=== PATIENT | female | born 1995 | race American Indian/Alaskan Native ===

== ENCOUNTER 2019-01-20 08:21 | Emergency (ER) | payer BC ==
[2019-01-20 08:29] VITALS: BP 112/67
--- NOTE | 2019-01-20 09:04 | Emergency Department Report ---
Upper Extremity - HPI Chief Complaint: Extremity Injury, Upper Stated Complaint: L SHOULDER PAIN Time Seen by Provider: 01/20/19 08:45 Upper Extremity: Left Shoulder Occurred When: 1 Day Mechanism: Fall Severity: moderate Symptoms: Yes Pain with Movement, Yes Limited Range of Movement, No Deformity, No Numbness, No Weakness, No Swelling, No Bruising/Ecchymosis, No Laceration or Abrasion Other History: This is a 23-year-old female who presents to ED complaining of left shoulder pain that began yesterday and is worsened this morning. Patient states that she tripped down a couple steps yesterday in fell landing on her arm and side. Patient states she was at home when this happens that she fell on carpet. Patient states that she had some shoulder and upper arm pain yesterday but this morning in has gotten worse and stiff. Patient states pain is worsened with movement of the left upper arm and shoulder. She denies loss of consciousness, trauma to the head. Patient states last menstrual period is 01/19/2019. ED Review of Systems ROS: Stated complaint: L SHOULDER PAIN Other details as noted in HPI Comment: All other systems reviewed and negative ED Past Medical Hx - Past Medical History Previous Medical History?: No - Surgical History Past Surgical History?: Yes Additional Surgical History: ovarian cyst - Social History Smoking Status: Never Smoker Substance Use Type: None - Medications Home Medications: Home Medications Medication Instructions Recorded Confirmed Last Taken Type Cyclobenzaprine [Flexeril] 10 mg PO QHS PRN #8 tablet 01/20/19 Unknown Rx Ibuprofen [Motrin] 800 mg PO Q8HR #30 tablet 01/20/19 Unknown Rx Upper Extremity Exam - Exam General: Vital signs noted. No distress. Alert and acting appropriately. Head and Torso: No HEENT Abnormality, No Neck Tenderness, No Chest/Lungs Abnormality, No Abdominal Tenderness, No Back Tenderness Shoulder Exam: Yes Shoulder Tenderness, Yes Normal Range of Motion in Shoulder (limited with pain), No Clavicle Tenderness, No Shoulder Deformity, No AC Joint Tenderness Arm Exam: No Arm/Humerus Tenderness, No Arm Deformity Elbow: No Elbow Tenderness, No Normal Range of Motion in Elbow, No Elbow Deformity Forearm: No Forearm Tenderness, No Forearm Deformity, No Pain with Pronation, No Pain with Supination Wrist: Yes Normal ROM in Wrist, No Wrist Tenderness, No Wrist Deformity, No Snuffbox Tenderness, No Pain with Axial Thumb Compression Hand: Yes Normal ROM in Digit(s), No Hand Tenderness, No Hand Deformity, No Digit Tenderness, No Digit(s) Deformity, No Tendon Dysfunction CMS Exam: No Broken Skin, No Normal Distal Pulses, No Normal Capillary Refill, No Normal Distal Sensation ED Course Vital Signs 01/20/19 08:28 Temperature 97.5 F L Pulse Rate 68 Respiratory 16 Rate Blood Pressure 112/67 [Left] O2 Sat by Pulse 100 Oximetry ED Medical Decision Making - Radiology Data Radiology results: report reviewed, image reviewed - Medical Decision Making 23-year-old female presents to ED with shoulder pain status post ground-level fall yesterday ED course: Patient received Toradol and Flexeril in ED. X-rays of the shoulder is obtained. X-ray shows no acute fracture dislocation Vital signs are normal patient is in no acute distress Discussed with patient follow-up with primary care physician. Discussed the patient and take medications as prescribed. Patient has no neurological deficit. Patient is alert and oriented 3 and understands all instructions given. Discussed drowsiness effect of Flexeril makes her drowsy and not to operate machinery while taking flexeril Critical care attestation.: If time is entered above; I have spent that time in minutes in the direct care of this critically ill patient, excluding procedure time. ED Disposition Clinical Impression: Left shoulder pain, Fall from ground level Disposition: DC-01 TO HOME OR SELFCARE Is pt being admited?: No Does the pt Need Aspirin: No Condition: Stable Instructions: Rotator Cuff Injury (ED), Shoulder Sprain (ED), Trigger Point Pain (ED) Additional Instructions: Make sure to follow up with the orthopedic doctor as discussed. Shoulder x-ray shows no fracture or dislocation. You have shoulder pain/strain from fall. Apply heat to the shoulder and Take all your medications as you've been prescribed. If you have any worsening symptoms or develop new symptoms please return to ED immediately. Prescriptions: Cyclobenzaprine [Flexeril] 10 mg PO QHS PRN #8 tablet PRN Reason: Muscle Spasm Ibuprofen [Motrin] 800 mg PO Q8HR #30 tablet Referrals: LEANDRA CASH MD [Primary Care Provider] - 3-5 Days JEANE AQUINO MD [Staff Physician] - 3-5 Days Forms: Accompanied Note, Work/School Release Form(ED) Time of Disposition: 09:15
[2019-01-20] MEDS ORDERED: FLEXERIL PO ONE (09:07)
[2019-01-20] MEDS ORDERED: TORADOL IM ONE (09:07)
--- NOTE | 2019-01-20 09:09 | XRay Report ---
Left shoulder, 3 views INDICATION: Pain following fall yesterday FINDINGS: The joint space is maintained. There is no fracture or dislocation. No spurring or arthriti c change. No bone lesion or periostitis. No significant abnormality. IMPRESSION: Negative study Signer Name: Dayne Al MD Signed: 01/20/2019 9:05 AM Workstation Name: [id number]
== END 2019-01-20 10:05 | disposition home or self-care (01) ==
LOC: ED 08:21
DX: M25.512 Pain in left shoulder (principal); Z98.890 Other specified postprocedural states; Z79.899 Other long term (current) drug therapy; W01.0XXA Fall on same level from slipping, tripping and stumbling without subsequent striking against object, initial encounter; Y93.89 Activity, other specified; Y92.098 Other place in other non-institutional residence as the place of occurrence of the external cause; Y99.8 Other external cause status
CPT/HCPCS: 73030; 96372; 99283; J1885

== ENCOUNTER 2019-05-17 19:56 | Emergency (ER) | payer BC ==
--- NOTE | 2019-05-17 20:46 | Emergency Department Report ---
Blank Doc - Documentation Documentation: 23-year-old female that presents with vaginal discharge. This initial assessment/diagnostic orders/clinical plan/treatment(s) is/are subject to change based on patient's health status, clinical progression and re- assessment by fellow clinical providers in the ED. Further treatment and workup at subsequent clinical providers discretion. Patient/guardians urged not to elope from the ED as their condition may be serious if not clinically assessed and managed. Initial orders include: 1- Patient sent to [facility] for further evaluation and treatment 2- UA 3- pelvic exam to be done
[2019-05-17 21:16] LABS: Bacteria,Urine 1+ /HPF (Negative); Bilirubin,Urine NEG (Negative); Blood,Urine SM (Negative); Color,Urine Yellow (Yellow); Mucus,Urine FEW /HPF; Protein,Urine <15 mg/dL mg/dL (Negative); Urobilinogen,Urine < 2.0 mg/dL (<2.0)
[2019-05-17 21:17] LABS: HCG Qualitative,Urine Negative (Negative)
[2019-05-17] MEDS ORDERED: LIDOCAINE-MPF (1%) 10 MG/1 ML VIAL 5 ML INFILTRATI ONE (23:20)
[2019-05-17] MEDS ORDERED: AZITHROMYCIN 1 GM ORAL PWDR PACKET PO ONE (23:21)
--- NOTE | 2019-05-17 23:30 | Emergency Department Report ---
HPI - General Chief Complaint: Urogenital-Female Time Seen by Provider: 05/17/19 20:45 - HPI HPI: 23-year-old [place] female presents to the emergency department with a complaint of a 5 day history of vaginal discharge and a one-day history of some bumps or lesions to the vagina. Patient says that the vaginal discharge became heavy over the past 24 hours. She denies any history of STDs but does have a history of bacterial vaginosis. She is sexually active and does not always use protection. She says that the bumps are small raised fluid-filled lesions. She says that she did pop them earlier in the day but they came back. They are pain ful. She has not taken anything for her symptoms prior to presentation. ED Past Medical Hx - Past Medical History Previous Medical History?: No - Surgical History Past Surgical History?: Yes Additional Surgical History: ovarian cyst - Social History Smoking Status: Never Smoker Substance Use Type: None - Medications Home Medications: Home Medications Medication Instructions Recorded Confirmed Last Taken Type Cyclobenzaprine [Flexeril] 10 mg PO QHS PRN #8 tablet 01/20/19 Unknown Rx Ibuprofen [Motrin] 800 mg PO Q8HR #30 tablet 01/20/19 Unknown Rx metroNIDAZOLE [Flagyl] 500 mg PO Q12HR #14 tab 05/18/19 Unknown Rx ED Review of Systems ROS: Stated complaint: POSSIBLE STD Other details as noted in HPI Comment: All other systems reviewed and negative Constitutional: denies: chills, fever Gastrointestinal: denies: abdominal pain Genitourinary: discharge. denies: dysuria, abnormal menses Musculoskeletal: denies: back pain Skin: lesions (vagina) Physical Exam - Physical Exam Vital Signs: Vital Signs 05/17/19 20:06 Temperature 98.5 F Pulse Rate 78 Respiratory 18 Rate Blood Pressure 119/64 O2 Sat by Pulse 97 Oximetry Physical Exam: GENERAL: The patient is well-developed well-nourished. HENT: Normocephalic. Atraumatic. Patient has moist mucous membranes. EYES: Extraocular motions are intact. NECK: Supple. Trachea is midline. ABDOMEN: There is no abdominal distention. SKIN: Skin is warm and dry. There is a group of flesh-colored papules to the right labia. No bleeding, weeping, drainage. NEURO: The patient is awake, alert, and oriented. The patient is cooperative. The patient has no focal neurologic deficits. Normal speech. MUSCULOSKELETAL: There is no tenderness or deformity. There is no evidence of acute injury. : There is a moderate amount of white discharge seen in the vagina. Cervical os appears closed. No obvious cervical lesions. ED Course Vital Signs 05/17/19 20:06 Temperature 98.5 F Pulse Rate 78 Respiratory 18 Rate Blood Pressure 119/64 O2 Sat by Pulse 97 Oximetry - Reevaluation(s) Reevaluation #1: Pelvic examination done with nurse Ortiz at bedside 05/18/19 00:39 ED Medical Decision Making - Medical Decision Making Regarding the patient's vaginal discharge, the patient was positive for both bacterial vaginosis and trichomoniasis. She'll be placed on Flagyl. We discussed the adverse reaction that occurs with Flagyl and alcohol. She was treated empirically for gonorrhea and chlamydia with Rocephin and azithromycin. Patient denies any significant abdominal or pelvic pain. She is afebrile. Low suspicion for PID. The rash or lesions the patient complains of is a group of/color papules to the right side of the labia. They're not obvious for vesicles. There are no current ulcerations. I discussed with patient about empirically treating for the possibility of herpes simplex but the patient declined. She was given a referral for dermatology an [facility], as well as the local health department. She will return to the ER with any worsening of her symptoms or any acute dist ress. - Differential Diagnosis gonorrhea, chlamydia, BV, trichomoniasis, herpes Critical Care Time: No Critical care attestation.: If time is entered above; I have spent that time in minutes in the direct care of this critically ill patient, excluding procedure time. ED Disposition Clinical Impression: Bacterial vaginosis, Trichomoniasis Disposition: DC-01 TO HOME OR SELFCARE Is pt being admited?: No Condition: Stable Instructions: Bacterial Vaginosis (ED), Trichomoniasis (ED) Additional Instructions: Please take the antibiotics as prescribed. The medication you were prescribed, Flagyl/metronidazole, has a very severe reaction of mixed with alcohol of any quantity. Please do not consume any alcohol for up to 2 days after finishing this medication. Please follow-up with [facility] or dermatology regarding your vaginal rash. Return to the emergency Department with any worsening of your symptoms or any acute distress. Prescriptions: metroNIDAZOLE [Flagyl] 500 mg PO Q12HR #14 tab Referrals: TOMASA ANDRADE MD [Staff Physician] - 2-3 Days [facility] [Provider Group] - 2-3 Days [facility] [Outside] - 2-3 Days Forms: STI Treatment and Prevention Time of Disposition: 00:28
[2019-05-18 00:47] VITALS: BP 117/76
== END 2019-05-18 00:45 | disposition home or self-care (01) ==
LOC: ED 19:56
DX: N76.0 Acute vaginitis (principal); B96.89 Other specified bacterial agents as the cause of diseases classified elsewhere; A59.9 Trichomoniasis, unspecified; Z79.1 Long term (current) use of non-steroidal anti-inflammatories (NSAID); Z79.899 Other long term (current) drug therapy
CPT/HCPCS: 81001; 81025; 87210; 87591; 96372; 99284; J0696